=== PATIENT | female | born 2005 ===

== ENCOUNTER 2025-08-12 11:29 | Outpatient (REF) | payer MEDICAID, SELFPAY ==
--- OUTSIDE RECORDS SUMMARY | 2025-08-09 22:15 | XMS_ITS | Continuity of Care Document ---
Author Organization [facility] ter Address [address] [place] [address]- Care Team Providers Care Rd Project Manager Name Role Phone Meggan Hernandez MD Primary Care Physician Encounter [facility] [place] Date(s): 08/09/25 - 08/09/[address] [address]- Discharge Disposition: A-D/C Home Attending Physician: Ronnie Marx DO Admitting Physician: Ronnie Marx DO Referring Physician: Not on Staff, Referring MD Encounter Type: Disch ES Allergies, Adverse Reactions, Alerts No Known Allergies Medications famotidine 20 mg oral tablet 20 mg, 1, tablet, By Mouth, Daily, # 14 tablet, Refills 1, Tot. Refills 1, Maintenance, 02/19/25 10:28:00 PM EDT, Print Requisition, Partial fill upon patient request if the prescription is for a schedule II opioid drug. Start Date: 02/19/25 Stop Date: 03/19/25 Status: Ordered Medication Dispense Status: Completed Quantity: 14.0 Unit: tablet Total Allowed Fills: 2 Fills Dispensed: 0 omeprazole 20 mg oral delayed release tablet 1 tablet = 20 mg, By Mouth, Daily, # 30 tablet, 0 Refills, Maintenance, 08/02/25 5:03:00 AM EST, ECTablet, [id number], Partial fill upon patient request if the prescription is for a scheduleII opioid drug., 160, cm, 07/17/25 18:09:00 EST, Height, 50, kg, 08/01/25 14:36:00 EST, Dry Weight Start Date: 08/02/25 Status: Ordered Medication Dispense Status: Completed Quantity: 30.0 Unit: tablet Total Allowed Fills: 1 Fills Dispensed: 0 ondansetron 4 mg oral tablet, disintegrating 1 tablet = 4 mg, By Mouth, Every 8 hours, PRN as needed for nausea/vomiting, # 20 tablet, 0 Refills, Maintenance, 07/17/25 11:34:00 PM EST, DIS Tablet, [id number], Partial fill upon patient request if the prescription is for a schedule II opioid drug., 160, cm, 07/17/25 18:09:00 EST, Height,52.5, kg, 07/17/25 18:09:00 EST, Dry Weight Start Date: 07/17/25 Status: Ordered Medication Dispense Status: Completed Quantity: 20.0 Unit: tablet Total Allowed Fills: 1 Fills Dispensed: 0 Reglan 5 mg oral tablet 1 tablet = 5 mg, By Mouth, Every 6 hours, PRN Nausea & Vomiting, for 5 days, # 20 tablet, 0 Refills, Acute 08/14/25 9:55:00 PM EST, 08/09/25 9:55:00 PM EST, Tablet, [id number], Partial fillupon patient request if the prescription is for a schedule II opioid drug., 160, cm, 07/17/25 18:09:00 EST, Height, 50, kg, 08/02/25 11:18:00 EST, Dry Weight Start Date: 08/09/25 Stop Date: 08/14/25 Status: Ordered Medication Dispense Status: Completed Quantity: 20.0 Unit: tablet Total Allowed Fills: 1 Fills Dispensed: 0 Mental Status Mental Status Assessment Assessment Assessment Component Result Effecti ve Date Remington coma score total 15 Vital Signs Most recent to oldest [Reference Range]: 1 2 3 Oxygen Saturation [94-100 %] 100 % (08/09/25 10:06 PM) 98 % (08/09/25 7:20 PM) 99 % (08/09/25 5:24 PM) Pulse Rate [55-90 bpm] 101 bpm *H* (08/09/25 10:06 PM) 108 bpm *H* (08/09/25 7:20 PM) 116 bpm *H* (08/09/25 5:24 PM) Blood Pressure [90-138/55-84 mm Hg] 110/65mm Hg (08/09/25 10:06 PM) 103/61mm Hg (08/09/25 7:20 PM) Respiratory Rate [16-30 br/min] 16 br/min (08/09/25 10:06 PM) 16 br/min (08/09/25 7:20 PM) 20 br/min (08/09/25 5:24 PM) Temperature [96.8-100.4 DegF] 98.8 DegF (08/09/25 10:06 PM) 99.4 DegF (08/09/25 7:20 PM) 98.7 DegF (08/09/25 5:24 PM) Mode of Delivery (Oxygen) Room air (08/09/25 10:06 PM) Room air (08/09/25 7:20 PM) Blood pressure sites Arm, right (08/09/25 10:06 PM) Arm, right (08/09/25 7:20 PM) Temperature Route Oral (08/09/25 10:06 PM) Oral (08/09/25 7:20 PM) Oral (08/09/25 5:24 PM) Social History Social History Type Response Sex Sex Representation Female (finding) Status Unknown Note * Joanna MENDIETA, Joya M: PERFORM Event Display: Patient Education Leaflets Authored Date: [id number] Vomiting (Adult) ?? [id number] V??mitos (adultos) Los v??mitos se producen cuando el contenido estomacal sale de la boca. Las n??useas son la sensaci??n desagradable de la necesidad de vomitar. Puede ocurrir con mareos, molestias estomacales (acidez) y ausencia de deseo de comer. Los v??mitos son un s??ntoma frecuente que puede deberse a diferentes causas. Estas incluyen gastroenteritis (gripe estomacal), intoxicaci??n alimentaria y gastritis. O puede ser un efecto secundariode ciertos medicamentos, [place] los opioides. Otras causas m??s graves de v??mitos pueden ser dif??ciles de diagnosticar en las primeras etapas de la enfermedad. Por eso es importante estar atento a las se??ales de advertencia que se enumeran a continuaci??n. Algunas personas tambi??n pueden vomitar debido a emociones maurice, alexandria el miedo, o por mareo. El principal peligro de los v??mitos reiterados es la deshidrataci??n. [place] se debe a la p??rdida de agua y minerales del cuerpo. Cuando esto ocurre, se deben reemplazar los l??quidos corporales. Otros problemas que pueden ocurrir a causa de los v??mitos incluyen: ??? Desequilibrio electrol??dony. ??? Desgarros en el es??fago. ??? Inhalaci??n del contenido del est??aleksey (aspiraci??n). ??? P??rdida de peso. ??? No obtener suficientes nutrientes. Cuidados en el hogar ??? Si los s??ntomas son graves, descanse en abdul casa tereso las siguientes 24??horas. ??? Debido aque dejon s??ntomas pueden ser causados por sierra infecci??n, l??vese sd y con frecuencia las raya. Use jab??n y agua corriente limpia o desinfectante a base de alcohol para evitar la propagaci??n de la infecci??n a otras personas. ??? L??vese las raya tereso al menos 20??segundos. Frote todas lassuperficies de las raya, incluso entre los dedos y debajo de las u??as, cada vez que se lave. Tararear la canci??n del Martin cumplea??os dos??veces mientras se lava es sierra manera f??cil de asegurarse de lavarse tereso 20??segundos. ??? L??vese las raya despu??s de ir al ba??o, antes y despu??s de preparar alimentos, y antes de comer. Tambi??n l??vese despu??s de cambiar un pa??al, limpiar sierra herida, cuidar a sierra persona enferma, sonarse la nariz, toser o estornudar. Tambi??n debe lavarse las raya despu??s de tocar comida o bocadillos para mascotas y de tocar un animal o desechos de animales. ??? Puede usar acetaminofeno o medicamentos BURTON, [place] ibuprofeno o naproxeno, para controlar la fiebre, a menos que se le haya recetado otro medicamento. Hable con abdul proveedor antes de usar estos medicamentos si tiene enfermedad hep??natalio o renal cr??pina o alguna vez tuvo sierra ??lcera estomacal o sangrado digestivo. [place]ca le d?? aspirina a ninguna persona hortencia de 18??a??os que est?? enferma con fiebre. Puede causar da??o hep??dony grave. No use medicamentos BURTON si ya est?? tomando renetta para otra afecci??n, [place] artritis, o si rafael aspirina para sierra enfermedad card??milo o despu??s de unaccidente cerebrovascular. ??? No consuma tabaco ni alcohol. Pueden empeorar los s??ntomas. Si tiene problemas para suspender cualquiera de las sustancias, p??sue a abdul proveedor recursos de tratamiento. ??? Si se recetaron medicamentos para los v??mitos, t??melos seg??n las indicaciones. Informe asu proveedor si no funcionan dentro del per??odo previsto. Sierra vez que se detengan los v??mitos, siga estas pautas: Tereso las primeras 12 a 24??horas, puede consumir: ??? Jugos de frutas, [place]lex[place] manzana y uva, bebidas de frutas claras y bebidas de reposici??n de electrolitos. ??? Bebidas [place] agua, refrescos sin cafe??na, agua mineral (ann o saborizada), y t?? y caf?? descafeinados. ??? Caldos transparentes. ??? Postres [place] gelatina ann, paletas de helado y barras de jugo de frutas. Tereso las siguientes 24??horas, puede agregar lo siguiente a lo anterior: ??? Cereal caliente, tostadas solas, flowers, panecillos y galletas. ??? Fideos solos, arroz, pur?? de chacorta y sopa de fideos o arroz con rama. ??? Fruta enlatada sin endulzar, [place] compota de manzana obananas (evite la pi??a y los c??tricos). ??? Yogur (6 a 8??onzas). ??? Cantidades limitadas de cafe??na y chocolate. ??? Evite las especias y los aderezos, excepto la raquel. Tereso las siguientes 24??horas, puede volver gradualmente a abdul dieta normal, a medida que se sienta mejor y dejon s??ntomas disminuyan. ?? Atenci??n de seguimiento Lynnette un seguimiento con abdul proveedor de atenci??n m??dica seg??n se lo indiquen. ?? Cu??ndo consultar al m??dico Llame a abdul proveedor de atenci??n m??dica de inmediato ante cualquiera de estas situaciones: ??? Dolor tree en la parte inferior derecha del vientre o aumento del dolor abdominal general. ??? V??mitos continuos (no puede retener l??quidos) tereso 24??horas. ??? V??mitos con cindy o lo que parecen posos de caf??. ??? Vientre hinchado. ??? Diarrea frecuente (m??s de 5??veces al d??a), o cindy (de color richards o malina) o mucosidad en la diarrea. ??? Orinar menos de lo habitual o luis sed. ??? Debilidad, mareos o desmayos. ??? Somnolencia inusual o confusi??n. ??? Fiebre de 100,4?F (38?C) o m??s, o seg??n las indicaciones de abdul proveedor. ??? Color amarillo de los ojos o la piel. ??? Otros s??ntomas que empeoran o nuevos s??ntomas. ?? Last Reviewed Date: 2024 00:00:00 ?? [id number] [employer]. Todos los derechos reservados. Esta informaci??n no pretende sustituir la atenci??n m??dica profesional. S??lo abdul m??dico puede diagnosticar y tratar un problema de amber. ?? Patient Care team information Care Team Personnel Name: Meggan Hernandez MD Position: [facility] Outreach Member Role: PCP Address: [address] [place] [address] [address] [place] [address]- Telecom: Insurance Providers Guarantor name: NA Health Plan Information #: 1 [facility] [employer] Payer Identifier: NA Member Number: [id number] Group Number: NA Subscriber Identifier: [id number] Relationship to Subscriber: self Coverage Type: MEDICAID Coverage Verification Date: NA Telecom: NA Address: NA
[2025-08-12 13:53] LABS: Alanine Aminotransferase 51 U/L (0-31); Albumin Level 4.8 g/dL (3.5-5.0); Alkaline Phosphatase 47 U/L (39-117); Anion Gap 16 (12-20); Aspartate Amino Transferase 37 U/L (5-31); Blood Urea Nitrogen 4 mg/dL (9-16); Calcium 10.1 mg/dL (8.4-10.2); Carbon Dioxide 28 mmol/L (22-29); Chloride 100 mmol/L (96-108); Estimated Glomerular Filt Rate > 60; Potassium 2.9 mmol/L (3.3-5.1); Sodium 141 mmol/L (135-145); Total Protein 7.9 g/dL (6.5-8.0)
[2025-08-12 14:01] LABS: Thyroid Stimulating Hormone 0.10 uIU/mL (0.32-4.0)
--- OUTSIDE RECORDS SUMMARY | 2025-08-12 15:39 | XMS_ITS | Clinical Summary ---
Author Organization [facility] Address [address] [place] [address] Care Team Providers Care Color Grinder Name Role Phone Meggan Tierney Primary Care Provider Allergies No known active allergies Medications capsaicin (ZOSTRIX) 0.025% topical cream SMARTSIG:Topi nicholas 4 Times Daily PRN 5 Active clindamycin (Cleocin T) 1 % lotionIndications: Acne vulgaris Apply topically to the affected area once a day. 60 mL 11 5 04/08/20 26 Active tretinoin (RETIN-A) 0.025 % creamIndications:A cne vulgaris Apply pea sized amount to whole face every 3rd night for 1 week, then every other night for 1 week, then nightly. 45 g 5 5 Active ondansetron (ZOFRAN ODT) 4 mg disintegrating tablet SMARTSI Tablet(s) By Mouth Every 8 Hours PRN 5 Active cephalexin (KEFLEX) 500 mg capsuleIndications :Acne vulgaris Take one capsule twice daily for 2 weeks, then once daily for 2 weeks, then stop 42 capsule 5 Active spironolactone (ALDACTONE) 50 mg tabletIndications: Acne vulgaris Take one tablet (50mg) daily for 2 weeks. If no lightheadedne ss, increase to one tablet twice daily (100mg total). 60 tablet 5 5 Active Active Problems No known active problems Encounters Date Type Department Care Team Description 07/22/2025 1:15 PM EST Office Visit [facility] Dermatology [address] [place] [address] Yamini Barr MD Acne vulgaris (Primary Dx) from Last 3 Months Social History Tobacco Use Types Packs/Day Years Used Date Smoking Tobacco: Never Assessed Comments Unknown Sex and Gender Information Value Date Recorded Sex Assigned at Female 04/07/2025 11:05 AM EDT Legal Sex Female 11:03 AM EDT Gender Identity Female 04/07/2025 11:05 AM EDT Sexual Orientation Not on file Plan of Treatment Upcoming Encounters Date Type Department Care Team (Late st Contact Info) Description 11/25/2025 10:45 AM EDT Office Visit [facility] Dermatology [address] [place] [address] Yamini Barr MD [address] [place] [address] Health Maintenance Due Date Last Done Comments HIV Screening 2004 Hepatitis C Screening 2004 1 Week [facility] 2004 1 Month [facility] 2004 2 Month [facility] 2004 4 Month [facility] 2004 6 Month [facility] 02/23/2005 9 Month [facility] 05/24/2005 MMR Vaccines (1 of 1 - Stand sesar series) 2005 12 Month [facility] 09/03/2005 15 Month [facility] 11/20/2005 18 Month [facility] 02/18/2006 24 Month [facility] 08/17/2006 30 Month [facility] 12/21/2006 3 to 21 Year [facility] 2007 Well Child Check 2007 DTaP,Tdap,and Td Vaccines (1 - Tdap) 2011 Varicella Vaccines (1 of 2 - 13+ 2-dose series) 2017 HPV Vaccines (1 - 3-dose series) 2019 Chlamydia Screening 2020 Meningococcal Vaccine (1 - 2 -dose series) 2020 Hepatitis B Vaccines (1 of 3 - 19+ 3-dose series) 2023 Depression Screening and Follow-Up 08/14/2024 Social Drivers of Health Andya ual Screening 08/14/2024 Influenza Vaccine (#1) 2025 COVID-19 Vaccine (1 - 2025-2 6 season) 2025 Pneumococcal Vaccine: Pediat atif (0-5 Years) and At-Risk Patients (6-50 Years) Aged Out No longer eligible b ased on patient's age to complete this topic Insurance [facility] Care Teams Color Grinder Relationship Specialty Start Date End Date Meggan Tierney [facility] [address] [place] [address] PCP - General Internal Medicine 04/08/25
--- OUTSIDE RECORDS SUMMARY | 2025-08-12 15:39 | XMS_ITS | Clinical Summary ---
Author Organization [facility] Address [address] [place] [address] Phone Care Team Providers Care Nuclear Radiation Engineer Name Role Phone Physician, No Pcp Primary Care Provider Unavaila ble Allergies No known active allergies Medications No known medications Encounters Date Type Department Care Team Description 07/31/2025 Telephone Gastroenterology - [address] [facility] [address] [facility] [address] [place] [address] Wei Rashid MD from Last 3 Months Medical History Medical History Date Comments Patient denies medical problems Social History Tobacco Use Types Packs/Day Years Used Date Smoking Tobacco: Never Smokeless Tobacco: Current Tobacco Cessation:Ready to Q uit: Not Asked; Counseling Given: Not Answered Alcohol Use Standard Drinks/Week Comments Yes 0 (1 standard drink = 0.6 oz pur e alcohol) Comments Unknown Sex and Gender Information Value Date Recorded Sex Assigned at Female 09/14/2024 6:20 PM EST Legal Sex Female 2:38 PM EST Gender Identity Female 09/14/2024 6:20 PM EST Sexual Orientation Straight 09/14/2024 6: 20 PM EST Last Filed Vital Signs Vital Sign Reading Time Taken Comments Blood Pressure 124/80 02/01/2025 4:33 PM EDT Pulse 72 02/01/2025 4:33 PM EDT Temperature 37.1 C (98.7 F) 02/01/2025 4:33 PM EDT Respiratory Rate 18 02/01/2025 4:33 PM EDT Oxygen Saturation 100% 02/01/2025 4:33 PM EDT Inhaled Oxygen Concentration - - Weight 49.9 kg (110 lb) 02/01/2025 4:25 PM EDT Height 160 cm (5' 3 ) 02/01/2025 4:25 PM EDT Body Mass Index 19.49 02/01/2025 4:25 PM EDT Plan of Treatment Health Maintenance Due Date Last Done Comments Gonorrhea/Chlamydia Screening 2004 Varicella Vaccines (1 of 2 - 13+ 2-dose series) 2017 HPV Vaccines (1 - 3-dose series) 2019 Meningococcal B Vaccine (1 o f 2 - Standard) 2020 DTaP,Tdap,and Td Vaccines (1 - Tdap) 2023 Hepatitis B Vaccines (1 of 3 - 19+ 3-dose series) 2023 Depression Screening 08/14/2024 Annual Well Child Visit (3-2 1 years old) 09/14/2024 Cholesterol Screening (Lipid Panel) 09/14/2024 HIV Screening 09/14/2024 Hepatitis C Screening 09/14/2024 Social Influencers of Health Screening 09/14/2024 COVID-19 Vaccine (1 - 2024-2 6 season) 2025 Influenza Vaccine (#1) 2025 RSV Immunization Adult Patie nts (1 - 1-dose 75+ series) 2079 HIB Vaccines Aged Out No longer eligi ble based on patient's age to complete this topic Hepatitis A Vaccines Aged Out No long er eligible based on patient's age to complete this topic IPV Vaccines Aged Out No longer eligi ble based on patient's age to complete this topic MMR Vaccines Aged Out No longer eligi ble based on patient's age to complete this topic Meningococcal ACWY Vaccine Aged Out N o longer eligible based on patient's age to complete this topic Pneumococcal Vaccine: Pediat rics (0 to 5 Years) and At-Risk Patients (6 to 49 Years) Aged Out No longer eligible b ased on patient's age to complete this topic RSV Immunization Patients Un radha 20 months Aged Out No longer eligible b ased on patient's age to complete this topic Insurance MEDICAID - [place] [facility] Care Teams Nuclear Radiation Engineer Relationship Specialty Start Date End Date Physician, No Pcp PCP - General 09/14/24
== END 2025-08-12 11:30 ==
LOC: HO.10HDL 11:29
PROVIDERS: Visit Provider Internal Medicine
DX: D49.0 Neoplasm of unspecified behavior of digestive system (principal); F32.9 Major depressive disorder, single episode, unspecified; R11.10 Vomiting, unspecified; R63.4 Abnormal weight loss
CPT/HCPCS: 36415; 80053; 84443